=== PATIENT | female | born 1950 | race Caucasian/White ===

== ENCOUNTER 2016-08-19 16:41 | Emergency (ER) | payer OTHER ==
[~2016-08-19] VITALS: Ht 160 cm; Wt 81.6 kg
--- NOTE | 2016-08-19 16:57 | NUR ---
Pt evaluated by MD in room 3 for dizziness and nausea. A/O x 4, vss, medicated as ordered, cont to monitor.
[2016-08-19] MEDS ORDERED: ONDANSETRON ODT 4 MG TAB.RAPDIS SL ONE (17:00)
[2016-08-19] MEDS ORDERED: MECLIZINE HCL 25 MG TABLET PO ONE (17:00)
[2016-08-19] MEDS ORDERED: ONDANSETRON ODT 4 MG TAB.RAPDIS ONE (17:03)
[2016-08-19] MEDS ORDERED: MECLIZINE HCL 25 MG TABLET ONE (17:03)
--- NOTE | 2016-08-19 17:53 | NUR ---
Pt reports "feeling better" and medication helped. Patient discharged home in stable conditon. Written and verbal after care instructions given. Prescription provided. Patient verbalizes understanding of instructions. Taken to the car in a wheelchair, w/ pt.
[2016-08-19 17:59] VITALS: BP 132/87
== END 2016-08-19 17:53 | disposition home or self-care (01) ==
LOC: ER 16:41
DX: H83.09 Labyrinthitis, unspecified ear (principal); R42 Dizziness and giddiness; F32.9 Major depressive disorder, single episode, unspecified
CPT/HCPCS: 93005; A4663; J8597; Q0162